=== PATIENT | female | born 1960 | race Hispanic/Latino ===

== ENCOUNTER 2018-01-13 11:16 | Day surgery (SDC) | payer OTHER ==
[2018-01-12 15:47] VITALS: BMI 32.6
--- NOTE | 2018-01-13 01:42 | HP ---
SHORT STAY HISTORY AND PHYSICAL DATE OF ADMISSION: 01/13/2018 HISTORY OF PRESENT ILLNESS: This is a 57-year-old Latin-[place] female with chronic GI symptoms. S he had a colonoscopy in 2006 and had 2 polyps removed. Afterwards she never went back for a followup colonoscopy. The patient gives history of chronic GI symptoms over the years. She has abdominal pa in off and on and also had abdominal bloating, abdominal swelling. There is no history of hematochez ia. ALLERGIES: AMOXICILLIN, LYRICA. SOCIAL HISTORY: She is a former smoker. No alcohol intake. MEDICAL ILLNESSES: 1. Allergic rhinitis. 2. Chronic anxiety. 3. Chronic back pain. 4. Colon polyp. 5. Vitamin D deficiency. 6. Benign tumor right breast, status post surgical resection. 7. Skin grafting after surgery. 8. Hyperglycemia. 9. Hypertension. PHYSICAL EXAMINATION: VITAL SIGNS: Pulse is 70, blood pressure 130/80. HEENT: Conjunctivae clear. CARDIOVASCULAR SYSTEM: First and second heart sounds normal. LUNGS: Clear to auscultation. ABDOMEN: Soft to palpate. No organomegaly. No tenderness. No masses. ADMITTING DIAGNOSES: Abdominal bloating, constipation, history of colon polyp. PLAN: Colonoscopy.
[2018-01-13] MEDS ORDERED: Lidocaine 1% PF 5 ML VIAL ONE (11:19)
[2018-01-13] MEDS ORDERED: PROPOFOL 200 MG/20 ML VIAL ONE (11:19)
--- NOTE | 2018-01-13 21:33 | OP ---
DATE OF PROCEDURE: 01/13/2018 PROCEDURE PERFORMED: Colonoscopy with polypectomy. PREOPERATIVE DIAGNOSES: A 57-year-old female with abdominal bloating, abdominal swell ing, constipation, and also past history of colon polyp. She is undergoing colonoscopy. POSTOPERATIVE DIAGNOSIS: Sessile polyp, high sigmoid colon. Otherwise, normal exam. PROCEDURE IN DETAIL: The patient was placed on her left lateral position and was given sedation by A nesthesia Department. A rectal exam was done before scope was advanced into the rectum. No lesion f elt on rectal exam. A Pentax video colonoscope was introduced into the rectum and advanced all the w ay into the cecum. The prep was good. The appendiceal orifice, ileocecal valve, cecum, no pathology seen. The mucosa appears normal throughout the colon with normal vascular pattern. Withdrawal of s cope in the cecum, ascending colon, hepatic flexure, no pathology seen. The transverse colon, spleni c flexure, descending colon, no pathology seen. The high sigmoid colon showed a large sessile polyp. This was removed with snare cautery. Post-polypectomy, there was good hemostasis noted. The remai nder of the sigmoid colon, rectum, no pathology seen. DISCHARGE PLANNING: This is a 57-year-old female who came for a colonoscopy. She und erwent colonoscopy with polypectomy. DISCHARGE RECOMMENDATIONS: 1. The patient was advised to call me if she develops abdominal pain, hematochezia. 2. High-fiber diet. 3. May try Linzess 75 mcg p.o. once a day for IBS-C.
== END 2018-01-13 15:40 | disposition home or self-care (01) ==
LOC: SDC 11:16
PROVIDERS: ATTEND Internal Medicine Gastroenterology
PROC: 0DBN8ZX Excision of Sigmoid Colon, Via Natural or Artificial Opening Endoscopic, Diagnostic (ICD-10-PCS; principal; 2018-01-13)
DX: K63.5 Polyp of colon (principal); F41.9 Anxiety disorder, unspecified; G89.29 Other chronic pain; M54.9 Dorsalgia, unspecified; E55.9 Vitamin D deficiency, unspecified; I10 Essential (primary) hypertension; Z88.0 Allergy status to penicillin; Z88.8 Allergy status to other drugs, medicaments and biological substances; Z87.891 Personal history of nicotine dependence; Z86.010 Personal history of colon polyps; Z79.82 Long term (current) use of aspirin; Z79.899 Other long term (current) drug therapy
CPT/HCPCS: 88305; J2001; J2704

== ENCOUNTER 2018-01-15 19:41 | Observation (INO) | payer OTHER ==
[2018-01-15] MEDS ORDERED: Ondansetron ODT 4 MG TAB ONE (20:10)
[2018-01-15 20:17] LABS: #Basophils 0.1 thou/uL (0.0-0.2); #Eosinphils 0.5 thou/uL (0.0-0.7); #Lymphocytes 2.8 thou/uL (1.20-3.40); #Monocytes 0.6 thou/uL (0.11-0.59); #Neutrophils 6.8 thou/uL (1.40-6.50); %Basophils 0.5 % (0.0-1.0); %Eosinophils 4.4 % (0.0-10.0); %Monocytes 5.4 % (0.0-10.0); %Neutrophils 63.7 % (42.0-75.0); Hemoglobin 13.4 g/dL (12.0-16.0); Mean Corpuscular HGB CONC 35.5 g/dL (32.0-36.0); Mean Corpuscular Hemoglobin 32.5 pg (27.0-31.0); Mean Corpuscular Volume 91.7 fl (81.0-99.0); Mean Platelet Volume 7.3 fL (7.4-10.4); Platelet Count 301 thou/uL (130-400); RBC Distribution Width 12.2 % (11.5-14.5); Red Blood Cell (RBC) Count 4.13 mill/uL (4.20-5.40); White Blood Cell (WBC) Count 10.6 thou/uL (4.8-10.8)
[2018-01-15 20:23] LABS: Prothrombin Time 13.2 SEC (12.0-14.7)
[2018-01-15 20:24] LABS: PTT 30.2 SEC (22.9-36.1)
[2018-01-15 20:38] LABS: Anion Gap 14 mmol/L (10-20); BUN (Urea Nitrogen) 8 mg/dL (9.8-20.1); Calc. Creatinine Clearance 0 mL/min (70-130); Calcium 9.6 mg/dL (7.8-10.44); Carbon Dioxide 23 mmol/L (22-29); Chloride 107 mmol/L (98-107); Estimated GFR-MDRD Greater than 90; Glucose 99 mg/dL (70-105); Potassium 3.7 mmol/L (3.5-5.1); Sodium 140 mmol/L (136-145)
[2018-01-15] MEDS ORDERED: Ondansetron ODT 4 MG TAB SL PRN (22:08)
[2018-01-15] MEDS ORDERED: Acetaminophen 325 MG TAB PO PRN (22:08)
[2018-01-15] MEDS ORDERED: Ondansetron HCl/PF 4 MG/2 ML Vial IVP PRN ×2 (22:08→22:47)
[2018-01-15 22:11] VITALS: BMI 33.5
[2018-01-15] MEDS ORDERED: Acetaminophen/Codeine 30-300mg Tablet PO PRN (22:47)
[2018-01-16 04:53] LABS: Hemoglobin 13.2 g/dL (12.0-16.0)
[2018-01-16] MEDS ORDERED: GoLYTELY 4,000 ml Bottle PO ONE (05:00)
[2018-01-16] MEDS ORDERED: Zolpidem Tartrate 5 MG TAB PO PRN (05:41)
--- NOTE | 2018-01-16 10:36 | HP ---
PRIMARY CARE PROVIDER: [facility] [place]. CHIEF COMPLAINT: Rectal bleeding. HISTORY OF PRESENT ILLNESS: Ms. Delgado is a pleasant 57-year-old lady who was seen at [facility] on 01/16/2018. She had colonoscopy on 01/13/2018 with polypectomy. She reports she went home. She had some rectal bleeding. She reports that she was told to expect th at and did not think much of it. The following day, she did not have any more bleeding. The next da y, which was yesterday, she started having rectal bleeding. She reports bright red blood along with blood clots. She denies any lightheadedness, chest pain, nausea, or vomiting. She denies any abdomi nal pain. She came to the emergency room because of ongoing rectal bleeding. REVIEW OF SYSTEMS: All other systems reviewed and found to be negative. PAST MEDICAL HISTORY: Osteoporosis, chronic back pain, and dyslipidemia. PAST SURGICAL HISTORY: Right partial mastectomy for benign tumor with right breast muscle transplant . PSYCHIATRIC HISTORY: Anxiety and depression. SOCIAL HISTORY: The patient denies tobacco use, alcohol use or recreational drug use. FAMILY HISTORY: Patient denies any family history of coronary artery disease. ALLERGIES: AMOXICILLIN and METFORMIN. CURRENT MEDICATIONS: Tylenol #4 p.r.n., ascorbic acid 500 mg daily, aspirin 81 mg daily, atorvastati n 40 mg at bedtime, ibuprofen 800 mg b.i.d., and Coenzyme Q10 100 mg at bedtime. PHYSICAL EXAMINATION: GENERAL: Ms. Delgado is awake and alert, not in acute distress. She is obese. VITAL SIGNS: Blood pressure is 109/69, pulse is 61, she is breathing at rate of 15 and saturating 94 % on room air. She is afebrile. EYES: No scleral icterus. No conjunctival pallor. ENT: Moist mucosal membranes, no oropharyngeal erythema or exudates. NECK: Supple, nontender, normal range of movement. Trachea is midline. RESPIRATORY: Accessory muscles of breathing are not active. Chest wall movements are symmetric bila terally. Lungs are clear to auscultation without wheeze, rhonchi or crepitations. CARDIOVASCULAR: S1 and S2 are heard, regular. Peripheral pulses palpable. No carotid bruit, no per icardial rub. ABDOMEN: Soft, nontender, bowel sounds heard, no hepatomegaly, no splenomegaly. NEUROLOGIC: Cranial nerves II through XII intact. Deep tendon reflexes are 2+. MUSCULOSKELETAL: Power is 5/5 in all 4 extremities. LYMPHATIC: No cervical lymphadenopathy. SKIN: No rashes or subcutaneous nodules. PSYCHIATRIC: Normal mood, normal affect, patient is oriented to person, place, and time. LABORATORY DATA: Ms. Delgado labs and investigations were reviewed. She has normal white count, hemo globin normal at 13.4, normal platelet count, INR 1.0 and an unremarkable basic metabolic profile. ASSESSMENT AND PLAN: Ms. Delgado is a pleasant 57-year-old lady who was seen at [facility] on 01/16/2018. Her problem list includes: 1. Lower gastrointestinal bleed: Status post recent polypectomy. The patient will be admitted to [facility] for further management on observation status. Her case has been discussed with her gastr oenterologist by emergency room physician. The patient is currently being prepped for colonoscopy. 2. Dyslipidemia: Stable, continue statin. 3. Osteoporosis: Stable. Many thanks for allowing me to participate in your patient's care. Please feel free to contact me wi th any questions or concerns. LEVEL OF RISK: Moderate. LEVEL OF COMPLEXITY: Moderate.
[2018-01-16] MEDS ORDERED: Promethazine HCl 25 MG/ML VIAL IM PRN (11:32)
[2018-01-16] MEDS ORDERED: Promethazine HCl 25 MG/ML VIAL SLOW IVP PRN (11:32)
[2018-01-16] MEDS ORDERED: Ondansetron HCl/PF 4 MG/2 ML Vial IVP PRN (11:32)
[2018-01-16 12:42] VITALS: BP 141/69; TEMP 97.9
--- NOTE | 2018-01-16 14:34 | HP ---
DATE OF ADMISSION: 01/15/2018 REASON FOR ADMISSION: Hematochezia. HISTORY OF PRESENT ILLNESS: Ms. Kamilla Delgado is a very pleasant 57-year-old female w ho is known to me from before. The patient was referred to me by Dr. Kathi Carmona, because of abdo jackie pain, abdominal bloating and also past history of colon polyp. She had a colonoscopy and polyp ectomy on 01/13/2018. She had a large sessile high sigmoid colon polyp removed. The patient was sen t home following the procedure. She was advised to call me should have abdominal pain, hematochezia. She called me this evening around 5:30 saying that she has actually passed some fresh blood and blo od clot. She also has some nausea. No dizziness, no headache. She came to the ER and had a CBC don e. Surprisingly, she has a normal CBC with hemoglobin of 13.4, hematocrit of 37.9. The patient hosp italized because of the hematochezia and the possibility of post-polypectomy bleeding. The patient h ad abdominal pain. There is no nausea or vomiting. No dizziness. She did feel nauseous this aftern oon, but at the present time, she has no nausea anymore. She is hospitalized basically because of he matochezia after polypectomy 2 days ago. ALLERGIES: LYRICA, AMOXICILLIN. SOCIAL HISTORY: She is a former smoker. Does not drink alcohol. MEDICAL ILLNESSES: 1. Hyperlipidemia. 2. Chronic back pain. 3. Hyperglycemia. 4. History of hypertension, not on any medication. 5. Anxiety and depression. 6. Allergic rhinitis. 7. Status post removal of right breast lump with skin grafting later on that was noncancerous as per the patient. MEDICATIONS: List reviewed. REVIEW OF SYSTEMS: Notable for nausea, hematochezia. History of chronic back pain. PHYSICAL EXAMINATION: GENERAL: Patient is awake, alert, and communicative. VITAL SIGNS: She is afebrile, her pulse is 61, blood pressure 109/69. HEENT: Conjunctivae clear. NECK: Supple. No adenitis or thyromegaly noted. CARDIOVASCULAR: First and second heart sounds are normal. LUNGS: Clear to auscultation. ABDOMEN: Soft to palpate. Abdomen is nontender. There is no organomegaly or masses. EXTREMITIES: Reveal no edema. LABORATORY DATA: Actually completely normal. CBC: WBC 10,600, hemoglobin 13.4, hematocrit 37.9, MC V 91.7, platelet count is 301,000, polymorphs 63, lymphocytes 26. Chemistry panel: Sodium is 140, p otassium 3.7, chloride 107, bicarbonate 23, BUN is 8, creatinine 0.59, glucose 99, calcium 9.6. ADMITTING DIAGNOSES: Hematochezia, most likely post-polypectomy bleeding. She had a large high sigm oid colon poly removed on 01/13/2018. PLAN: N.p.o. clear liquid diet. Prep the patient for repeat colonoscopy and possibly heater probe t herapy of polypectomy site. Hopefully, she will be discharged over the next 24 hours.
[2018-01-16] MEDS ORDERED: PROPOFOL 200 MG/20 ML VIAL ONE (15:13)
[2018-01-16] MEDS ORDERED: Lidocaine 1% PF 5 ML VIAL ONE (15:13)
--- NOTE | 2018-01-16 15:38 | DIS ---
DATE OF ADMISSION: 01/16/2018 DATE OF DISCHARGE: 01/16/2018 PRIMARY CARE PROVIDER: Kathi Carmona M.D. DISCHARGE DIAGNOSIS: Lower gastrointestinal bleed. CONSULTATIONS DURING THIS HOSPITALIZATION: Gastroenterology, Dr. Raman Tucker. HOSPITAL COURSE: Ms. Delgado is a pleasant 57-year-old lady who was admitted to [facility] on 01/16/2018 for post-polypectomy lower GI bleed. She was seen by Gastroenterology Ser vice and underwent colonoscopy. At the time of this dictation, colonoscopy report is pending. She h as been cleared for discharge by Gastroenterology Service. No change was made to her preadmission ho me medications as dictated on my history and physical note from 01/16/2018. Many thanks for allowing me to participate in your patient's care. Please feel free to contact me wi th any questions or concerns.
--- NOTE | 2018-01-16 16:53 | OP ---
DATE OF PROCEDURE: 01/16/2018 OPERATIVE PROCEDURE: Colonoscopy with 7-Uzbek heater probe therapy of polypectomy site. PREOPERATIVE DIAGNOSES: A 57-year-old Latin-[place] female, who had a colonoscopy with polypectomy on 01/13/2018. She had a sessile polyp noted in the sigmoid colon area. The patient has hematochezi a. The patient tolerating a colonoscopy. POSTOPERATIVE DIAGNOSES: 1. No active bleeding seen at endoscopy. 2. Previous polypectomy site showed a visible vessel without active bleeding. PROCEDURE NOTE: The patient was placed on her left lateral position and was given sedation by Anesth esia Department. A rectal exam was done before the scope was advanced into the rectum. No lesion fe lt on rectal exam. A Pentax video colonoscope was introduced into the rectum, advanced all the way i nto the cecum. The prep was good. The mucosa appeared normal. The appendiceal orifice, ileocecal v alve, and cecum, no pathology seen. At the time of endoscopy, the colon was completely clean and no blood or any old blood seen. The previous polypectomy site over the sigmoid colon identified. There is a visible vessel. No active bleeding seen. The polypectomy site cauterized with 7-Uzbek heater probe with good hemostasis. The colon decompressed and scope removed. RECOMMENDATIONS: We will observe the patient on next couple of hours. The patient has no problem, w e will discharge home later on this afternoon. The patient will come back to me in 2 weeks for jaleesa fernandez.
== END 2018-01-16 14:21 | disposition home or self-care (01) ==
LOC: ERS 19:41 → 2SW 21:47
PROVIDERS: ADMIT Internal Medicine Infectious Disease; ATTEND Internal Medicine Infectious Disease
PROC: 0W3P8ZZ Control Bleeding in Gastrointestinal Tract, Via Natural or Artificial Opening Endoscopic (ICD-10-PCS; principal; 2018-01-16)
DX: K92.1 Melena (principal); M81.0 Age-related osteoporosis without current pathological fracture; G89.29 Other chronic pain; M54.9 Dorsalgia, unspecified; E78.5 Hyperlipidemia, unspecified; F41.9 Anxiety disorder, unspecified; F32.9 Major depressive disorder, single episode, unspecified; Z88.0 Allergy status to penicillin; Z88.8 Allergy status to other drugs, medicaments and biological substances; Z79.899 Other long term (current) drug therapy
CPT/HCPCS: 36415; 80048; 85014; 85018; 85025; 85610; 85730; 99285; G0378; J2001; J2704; Q0162

== ENCOUNTER 2018-03-18 09:53 | Outpatient (CLI) | payer OTHER ==
--- NOTE | 2018-03-18 11:54 | ULT ---
ULTRASOUND ABDOMEN COMPLETE: DATE: 03-18-18 HISTORY: 57-year-old female with generalized abdominal pain. FINDINGS: The gallbladder has normal wall thickness and has no evidence of gallstones or sludge. The hepatic e chogenicity is normal. The kidneys have normal echogenicity, and there is no hydronephrosis. There is no splenomegaly. There is no abdominal aortic aneurysm. No free fluid is identified. The inferi or vena cava is visualized. The pancreas is visualized, although ultrasound is relatively insensitiv e for pancreatic pathology compared to CT and MRI. There is no biliary dilation. The common duct ca liber is 6 mm. IMPRESSION: 1. Common duct caliber of 6 mm, at the upper limits of normal. 2. Otherwise negative. elmo POS: MALENA
--- NOTE | 2018-03-18 11:56 | ULT ---
ULTRASOUND URINARY BLADDER: Date: 03-19-18 History: 57-year-old female with urinary tract infection and generalized abdominal pain. FINDINGS: A single image of the pelvis demonstrates no discernable features. The urinary bladder is empty, and not visible on this ultrasound. IMPRESSION: Nondiagnostic ultrasound of the bladder due to empty state of urinary bladder. POS: MALENA
== END 2018-03-18 09:54 | disposition home or self-care (01) ==
LOC: SCSULT 09:53
DX: N39.0 Urinary tract infection, site not specified (principal); R10.84 Generalized abdominal pain
CPT/HCPCS: 76700; 76856

== ENCOUNTER 2018-05-15 14:12 | Emergency (ER) | payer OTHER ==
[2018-05-15] MEDS ORDERED: Ketorolac Tromethamine 30 MG/ML VIAL ONE (15:25)
[2018-05-15] MEDS ORDERED: Metoclopramide HCl 10 MG/2 ML VIAL ONE (15:26)
[2018-05-15] MEDS ORDERED: Ketorolac Tromethamine 60 MG/2 ML VIAL ONE (15:30)
== END 2018-05-15 16:06 | disposition home or self-care (01) ==
LOC: ERS 14:12
DX: J01.90 Acute sinusitis, unspecified (principal); E78.5 Hyperlipidemia, unspecified; F41.9 Anxiety disorder, unspecified; F32.9 Major depressive disorder, single episode, unspecified; Z87.891 Personal history of nicotine dependence; Z79.899 Other long term (current) drug therapy
CPT/HCPCS: 96372; J1885; J2765

== ENCOUNTER 2018-08-26 10:48 | Outpatient (CLI) | payer MEDICARE, MEDICAID | END 2018-08-26 10:49 | disposition home or self-care (01) | LOC: BICMAMMO 10:48 | PROVIDERS: ATTEND Family Medicine | DX: Z12.31 Encounter for screening mammogram for malignant neoplasm of breast (principal); N63.22 Unspecified lump in the left breast, upper inner quadrant | CPT/HCPCS: 77063; 77067 ==

== ENCOUNTER 2018-08-31 08:37 | Outpatient (CLI) | payer MEDICARE, MEDICAID ==
--- NOTE | 2018-08-31 10:11 | ULT ---
LIMITED LEFT BREAST ULTRASOUND: Date: 08-31-18 Provided Clinical History: Abnormal mammogram. FINDINGS: Comparison is made with screening mammography dated 08-26-18 and screening mammography 08-21-16. The nodular density described on the screening mammogram demonstrates little if any change mammograph ically from the 2017 study. Limited sonographic interrogation of the portion of the breast demonstrat es a circumscribed focus of diminished echogencity measuring about 1.6 cm. There is no shadowing. The margins of this process are well defined. This is not completely anechoic. There is an additional fo serafin similar focus of altered echogenicity at the 11 o'clock position of the left breast measuring abo ut 9 mm, corresponding with an additionally mammographically stable nodule. IMPRESSION: BIRADS category 3 - probably benign findings. 6-month follow up left breast ultrasound is recommended . POS: OFF
== END 2018-08-31 08:38 | disposition home or self-care (01) ==
LOC: BICULT 08:37
PROVIDERS: ATTEND Family Medicine
DX: N63.20 Unspecified lump in the left breast, unspecified quadrant (principal)

== ENCOUNTER 2019-09-07 08:11 | Outpatient (CLI) | payer MEDICARE, MEDICAID ==
--- NOTE | 2019-09-07 09:33 | ULT ---
LIMITED LEFT BREAST ULTRASOUND: Date: 09/07/2019 PROVIDED CLINICAL HISTORY: Left breast masses. FINDINGS: Comparison made with the examinations performed 03/29/2019 and 08/31/2018. Hypoechoic nodules at the 11 o'clock position of the left breast are redemonstrated, without signific ant interval change with respect to prior studies. IMPRESSION: BIRADS Category 3 - Probably benign findings. A 1 year follow-up ultrasound and diagnostic mammogram are recommended. The facility will notify patient of need for additional imaging services. POS: OFF
--- NOTE | 2019-09-07 10:14 | MMO ---
Bilateral MAMMO Bilat Screen [facility]. CLINICAL HISTORY: Patient is 59 years old and is seen for screening. The patient has a history of right Mastectomy in 2007 - malignant and right Transflap in 2007. VIEWS: The views performed were: . FILMS COMPARED: The present examination has been compared to prior imaging studies performed at [facility] on 08/21/2016, 08/26/2018, 03/29/2019 and 09/07/2019. This study has been interpreted with the assistance of computer-aided detection. MAMMOGRAM FINDINGS: There are scattered fibroglandular densities. There are several stable nodules seen in the left breast. Ultrasound findings are stable. In the right breast, there are no suspicious masses, calcifications or areas of architectural distortion. IMPRESSION: STABLE NODULES IN THE LEFT BREAST ARE PROBABLY BENIGN. FOLLOW-UP IN 1 YEAR IS RECOMMENDED. THE RESULTS OF THIS EXAM WERE SENT TO THE PATIENT. ACR BI-RADS Category 3 - Probably benign finding - short interval follow-up suggested. [facility] will notify the patient of the need for additional imaging services. MAMMOGRAPHY NOTE: 1. A negative mammogram report should not delay a biopsy if a dominant of clinically suspicious mass is present. 2. Approximately 10% to 15% of breast cancers are not detected by mammography. 3. Adenosis and dense breasts may obscure an underlying neoplasm. Reported by: CHOLO THACKER MD Electonically Signed: [id number]
== END 2019-09-07 08:12 | disposition home or self-care (01) ==
LOC: BICULT 08:11
DX: Z12.31 Encounter for screening mammogram for malignant neoplasm of breast (principal); R92.8 Other abnormal and inconclusive findings on diagnostic imaging of breast; D24.1 Benign neoplasm of right breast; Z90.11 Acquired absence of right breast and nipple; N63.20 Unspecified lump in the left breast, unspecified quadrant
CPT/HCPCS: 77063; 77067

== ENCOUNTER 2021-12-16 14:00 | Outpatient (CLI) | payer MEDICARE, MEDICAID | END 2021-12-16 14:01 | disposition home or self-care (01) | PROVIDERS: ATTEND Family Medicine | DX: M51.36 Other intervertebral disc degeneration, lumbar region (principal); G90.522 Complex regional pain syndrome I of left lower limb ==